=== PATIENT | female | born 1980 | race Caucasian/White ===

== ENCOUNTER 2021-12-22 19:42 | Emergency (ER) | payer BC ==
[~2021-12-22] VITALS: Ht 160 cm; Wt 59.9 kg
--- NOTE | 2021-12-22 20:20 | NUR ---
BIBS FOR C/O R FOOT AND ANKLE PAIN, SWELLING AND BRUISES S/P SLIP AND FALL. ALERT AND ORIENTED X 4 BREATHING EVEN AND UNLABORED. ALL V/S STABLE.
[2021-12-22] MEDS ORDERED: IBUPROFEN 600 MG TABLET ONE (20:23)
[2021-12-22] MEDS ORDERED: IBUPROFEN 600 MG TABLET PO ONE (20:30)
--- NOTE | 2021-12-22 22:14 | NUR ---
Patient discharged to home in stable condition. Written and verbal after care instructions given. Patient verbalizes understanding of instruction. Pt assisted via wheelchair by EMT to car.
[2021-12-22 22:31] VITALS: BP 125/68
== END 2021-12-22 22:32 | disposition home or self-care (01) ==
LOC: ER 20:00
DX: S92.351A Displaced fracture of fifth metatarsal bone, right foot, initial encounter for closed fracture (principal); E03.9 Hypothyroidism, unspecified; W01.0XXA Fall on same level from slipping, tripping and stumbling without subsequent striking against object, initial encounter; Y93.01 Activity, walking, marching and hiking; Y92.89 Other specified places as the place of occurrence of the external cause; Y99.8 Other external cause status
CPT/HCPCS: 73610-TC; 73630-TC